=== PATIENT | female | born 1950 | race Two or more races ===

== ENCOUNTER 2025-08-26 12:59 | Inpatient (IN) | payer BC, MEDICAID ==
[~2025-08-26] VITALS: Ht 160 cm; Wt 75.1 kg
--- NOTE | 2025-08-26 14:24 | ED.PDOC ---
History of Present Illness HPI Comments 74-year-old female presents to the ER in a wheelchair being pushed by caregiver and with a prior medical history of seizures, CVA in the chief complaint of tremors. Caregiver reports on the patient having had on and off tremors for one week but worsened earlier today associated with diarrhea. Denies any other symptoms at this time. Denies chills, fever, N/V/D, SOB, CP. No other associated symptoms, modifiers, recent injuries or sick contacts present at this time. 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 Family History Family History: Reviewed,noncontributory to illness, Unknown Social History Smoker: Non-Smoker Alcohol: Denies ETOH Use Drugs: Denies Drug Use Lives In: Home Constitutional: denies: chills, diaphoresis, fatigue, fever, malaise, sweats, weakness, others EENTM: denies: blurred vision, double vision, ear bleeding, ear discharge, ear drainage, ear pain, ear ringing, eye pain, eye redness, hearing loss, mouth pain, mouth swelling, nasal discharge, nose bleeding, nose congestion, nose pain, photophobia, tearing, throat pain, throat swelling, voice changes, others Respiratory: denies: cough, hemoptysis, orthopnea, SOB at rest, shortness of breath, SOB with excertion, stridor, wheezing, others Cardiovascular: denies: chest pain, dizzy spells, diaphoresis, Dyspnea on exertion, edema, irregular heart beat, left arm pain, lightheadedness, palpitations, PND, syncope, others Gastrointestinal: reports: diarrhea; denies: abdomen distended, abdominal pain, blood streaked bowels, constipated, dysphagia, difficulty swallowing, hematemesis, melena, nausea, poor appetite, poor fluid intake, rectal bleeding, rectal pain, vomiting, others Genitourinary: denies: abnormal vagina bleeding, burning, dyspareunia, dysuria, flank pain, frequency, hematuria, incontinence, pain, , vagina discharge, urgency, others Neurological: reports: tremors; denies: dizziness, fainting, headache, left sided numbness, left sided weakness, numbness, paresthesia, pre-existing deficit, right sided numbness, right sided weakness, seizure, speech problems, tingling, weakness, others Musculoskeletal: denies: back pain, gout, joint pain, joint swelling, muscle pain, muscle stiffness, neck pain, others Integumetry: denies: bruises, change in color, change in hair/nails, dryness, laceration, lesions, lumps, rash, wounds, others Allergic/Immunocompromised: denies: Difficulty Healing, Frequent Infections, Hives, Itching, others Hematologic/Lymphatic: denies: anemia, blood clots, easy bleeding, easy bruising, swollen glands, others Endocrine: denies: excessive hunger, excessive sweating, excessive thirst, excessive urination, flushing, intolerance to cold, intolerance to heat, unexplained weight gain, unexplained weight loss, others Psychiatric: denies: anxiety, bipolar disorder, depression, hopeless, panic disorder, schizophrenia, sleepless, suicidal, others All Other Systems: Reviewed and Negative Physical Exam General Appearance: No Apparent Distress, Normal HEENT: Normal ENT Inspection, Pharynx Normal, TMs Normal Neck: Full Range of Motion, Non-Tender, Normal, Normal Inspection Respiratory: Chest Non-Tender, Lungs Clear, No Accessory Muscle Use, No Respiratory Distress, Normal Breath Sounds Cardiovascular: No Edema, No JVD, No Murmur, No Gallop, Normal Peripheral Pulses, Regular Rate/Rhythm Breast Exam: Deferred Gastrointestinal: No Organomegaly, Non Tender, No Pulsatile Mass, Normal Bowel Sounds, Soft Genitalia: Deferred Pelvic: Deferred Rectal: Deferred Extremities: No calf tenderness, Normal capillary refill, Normal inspection, No rmal range of motion, Non-tender, No pedal edema Musculoskeletal : Apperance: Normal Neurologic: Alert, blending tank tender II-XII nml as Tested, No Motor Deficits, Normal Affect, Normal Mood, No Sensory Deficits Cerebellar Function: Normal Reflexes: Normal Skin: Dry, Normal Color, Warm Lymphatic: No Adenopathy Was a procedure done? Was a procedure done?: No EKG EKG : Pulse Rate (adult): 99 [place]: Normal Cardiac Rhythm: NSR Block: None Hypertrophy: None ST: Normal Differential Dx Considerations may include: ACS, CVA, hypertensive emergency, viral syndrome, electrolyte abnormality X-Ray, Labs, Meds, VS Vital Signs Date Time Temp Pulse Resp B/P (MAP) Pulse Ox O2 Delivery O2 Flow Rate FiO2 08/26/25 17:00 98.7 88 18 149/115 (126) 98 98.7 08/26/25 17:00 88 18 98 Room Air* 0 21 08/26/25 16:59 149/115 08/26/25 16:40 97.8 86 16 171/122 (138) 95 97.8 08/26/25 15:46 184/122 08/26/25 15:26 98.2 79 16 184/122 (142) 94 98.2 08/26/25 14:25 99 08/26/25 13:09 99 08/26/25 13:00 98.1 102 18 172/111 95 98.1 Lab Test 08/26/25 17:44 08/26/25 15:30 08/26/25 14:23 Range/Units Troponin I High Sensitivity Pending 6 5 </=34 ng/L White Blood Count 6.7 4.4-10.8 10^3/uL Red Blood Count 5.15 4.0-5.20 10^6/uL Hemoglobin 15.2 12.2-16.2 g/dL Hematocrit 46.1 H 36.0-46.0 % Mean Corpuscular Volume 89.5 80.0-100.0 fL Mean Corpuscular Hemoglobin 29.6 28.0-32.0 pg Mean Corpuscular Hemoglobin Concent 33.1 32.0-36.0 g/dL Red Cell Distribution Width 14.5 H 11.8-14.3 % Platelet Count 174 140-450 10^3/uL Mean Platelet Volume 9.7 6.9-10.8 fL Neutrophils (%) (Auto) 69.5 37.0-80.0 % Lymphocytes (%) (Auto) 22.1 10.0-50.0 % Monocytes (%) (Auto) 6.7 0.0-12.0 % Eosinophils (%) (Auto) 1.1 0.0-7.0 % Basophils (%) (Auto) 0.6 0.0-2.0 % Neutrophils # (Auto) 4.7 1.6-8.6 10 ^3/uL Lymphocytes # (Auto) 1.5 0.4-5.4 10 ^3/uL Monocytes # (Auto) 0.5 0-1.3 10 ^3/uL Eosinophils # (Auto) 0.1 0-0.8 10 ^3/uL Basophils # (Auto) 0 0-0.2 10 ^3/uL Nucleated Red Blood Cells 0.1 % Sodium Level 147 H 136-145 mmol/L Potassium Level 4.0 3.5-5.1 mmol/L Chloride Level 108 H 98-107 mmol/L Carbon Dioxide Level 31 20-31 mmol/L Anion Gap 8 5-15 Blood Urea Nitrogen 16 9-23 mg/dL Creatinine 0.94 0.550-1.02 mg/dL Glomerular Filtration Rate Calc 63 >90 mL/min BUN/Creatinine Ratio 17.0 10.0-20.0 Serum Glucose 88 74-106 mg/dL Calcium Level 9.4 8.7-10.4 mg/dL Current Medications Medications (Trade) Dose Ordered Sig/Sera Route Start Time Stop Time Status Last Admin Clonidine HCl (Catapres Tablet) 0.1 mg ONCE ONCE PO 08/26/25 15:45 08/26/25 15:46 DC 08/26/25 15:46 Time of 1ST Reevaluation: 14:20 Reevaluation 1ST: Unchanged Patient Education/Counseling: Diagnosis, Treatment, Prognosis Family Education/Counseling: Diagnosis, Treatment, Prognosis SEPSIS Sepsis Screen Date sepsis recognized/suspect: Aug 26, 2025 Time Sepsis recognized/suspect: 1300 Recent Procedure: No On Antibiotic Therapy: No Respiratory Rate >20: No Heart Rate >90: Yes Temp<36 C (96.8 F) or >38.3 C: No SBP <90 or MAP <65 mmHG: No New Acute Mental Status Change: No Is the patient on CPAP, BIPAP,: No Physician Orders Electrocardigram (08/26/25 13:14) Urinalysis (08/26/25 13:52) Chest Portable (08/26/25 13:52) Head Without Contrast (08/26/25 13:52) Troponin-I Hs (08/26/25 16:52) Hydralazine Injection (Apresoline Inject (08/26/25 17:45) Vital Signs Date Time Temp Pulse Resp B/P (MAP) Pulse Ox O2 Delivery O2 Flow Rate FiO2 08/26/25 17:00 98.7 88 18 149/115 (126) 98 98.7 08/26/25 17:00 88 18 98 Room Air* 0 21 08/26/25 16:59 149/115 08/26/25 16:40 97.8 86 16 171/122 (138) 95 97.8 08/26/25 15:46 184/122 08/26/25 15:26 98.2 79 16 184/122 (142) 94 98.2 08/26/25 14:25 99 08/26/25 13:09 99 08/26/25 13:00 98.1 102 18 172/111 95 98.1 Laboratory Tests Test 08/26/25 14:23 White Blood Count 6.7 10^3/uL (4.4-10.8) Medications Medications Dose Ordered Sig/Sera Route Start Time Stop Time Status Last Admin Dose Admin Clonidine HCl 0.1 mg ONCE ONCE PO 08/26/25 15:45 08/26/25 15:46 DC 08/26/25 15:46 Departure 1 Departure Time of Disposition: 17:48 (Patient presented with hypertension and symptoms concerning for hypertensive emergency. Patient is receiving iv blood pressure medications requiring intensive monitoring. Data: 1. I ordered and reviewed the result of at least 3 labs including a CBC, BMP, and Urinalysis. 2. I independently interpreted the following tests: CT Brain: Which appears benign. EKG which is Normal Sinus RhythmRisk:This patient has a high risk of morbidity due to further diagnostic testing or treatment and may suffer from an acute cardiac disorder. Workup reveals hypertensive emergency and patient should be admitted for further workup. and possible expert consultation. ) Impression: Primary Impression: Hypertensive emergency Additional Impressions: Encephalopathy Tremors of nervous system Disposition: ADMITTED INPATIENT Admit to: Tele Condition: Guarded Critical Care Note Critical Care Time?: Yes Critical care comment: Hypertensive emergency Authorized and Performed by: Justina Cabrera MD Total critical care time: Approximately 38 minutes Due to a high probability of clinically significant, life threatening deterioration, the patient required my highest level of preparedness to intervene emergently and I personally spent this critical care time directly and personally managing the patient. This critical care time included obtaining a history; examining the patient; pulse oximetry; ordering and review of studies; arranging urgent treatment with development of a management plan; evaluation of patient's response to treatment; frequent reassessment; and, discussions with other providers. This critical care time was performed to assess and manage the high probability of imminent, life-threatening deterioration that could result in multi-organ failure. It was exclusive of separately billable procedures and treating other patients and teaching time. Please see my other sections and the rest of the note for further information on patient assessment and treatment. Stability Stability form required: No I personally scribed for JUSTINA CABRERA MD ([email or web address]) on 08/26/25 at 14:24. Electronically submitted by Leon Fritz ([employer]). I personally scribed for JUSTINA CABRERA MD ([email or web address]) on 08/26/25 at 14:25. Electronically submitted by Leon Fritz ([email or web address]). JUSTINA CABRERA MD Aug 26, 2025 14:24
--- NOTE | 2025-08-26 14:31 | DVH ---
CHEST RADIOGRAPH Indication: worsening seizures Technique: Single frontal view of the chest was obtained Comparison: None FINDINGS: Lines and Tubes: None Lungs: No focal consolidation. Pleura: No effusion. No pneumothorax. Cardiomediastinal contours: Unremarkable Bones: No acute osseous abnormality. IMPRESSION: No acute cardiopulmonary disease.
--- NOTE | 2025-08-26 14:37 | DVH ---
CT HEAD WITHOUT CONTRAST INDICATION: worsening seizures EXAM DATE: 08/26/2025 02:01 PM COMPARISON: None RADIATION DOSE: CTDIvol: 53 mGy, DLP: 966 mGy*cm PROCEDURE: CT scans of the head were obtained from the vertex to the skull base. Sagittal and coronal reconstructions were provided. All CT scans at this medical facility are performed using dose modulation techniques as appropriate to a performed exam including the following: Automated exposure control was utilized; adjustment of the MA and/or KV according to patient size; and use of iterative reconstruction technique. FINDINGS: There is sulcal and ventricular prominence. The brainshows normal morphology and bingham-white matter differentiation, without intracranial hemorrhage, extra-axial fluid collection, mass effect or acute large vessel infarct. The ventricles are normal in size. The basal cisterns are patent. The skull and visible facial bones are intact. The paranasal sinuses, mastoid air cells and middle ear cavities are well-aerated. The soft tissues of the scalp are unremarkable. IMPRESSION: No acute intracranial abnormality.
[2025-08-26 14:41] LABS: Hematocrit 46.1 % (36.0-46.0); Hemoglobin 15.2 g/dL (12.2-16.2); Mean Corpuscular Hemoglobin 29.6 pg (28.0-32.0); Mean Corpuscular Volume 89.5 fL (80.0-100.0); Nucleated Red Blood Cells % 0.1 %
[2025-08-26 14:50] LABS: Chloride 108 mmol/L (98-107); Potassium 4.0 mmol/L (3.5-5.1); Sodium 147 mmol/L (136-145)
[2025-08-26 14:51] LABS: Anion Gap 8 (5-15); Calcium 9.4 mg/dL (8.7-10.4); Carbon Dioxide 31 mmol/L (20-31)
[2025-08-26 14:56] LABS: BUN/Creatinine Ratio 17.0 (10.0-20.0); Blood Urea Nitrogen 16 mg/dL (9-23); Glucose 88 mg/dL (74-106)
[2025-08-26 17:00] VITALS: PULSE 88; RESP 18; O2SAT 98
[2025-08-26] MEDS: hydrALAZINE HCL 20 MG/ML VL IV ONE (18:59)
[2025-08-26] MEDS ORDERED: ONDANSETRON HCL 4 MG/2 ML VIAL IV PRN (19:45)
[2025-08-26] MEDS ORDERED: HYDROcodone-ACET 5/325MG TAB PO PRN (19:45)
[2025-08-26] MEDS ORDERED: LORazepam 2MG/ML-1ML VIAL IV PRN (19:45)
[2025-08-26] MEDS: DEXTROSE (50%) 50ML SYRG IV ONE (20:34)
[2025-08-26] MEDS: DEXTROSE 50% SYRINGE 50 ML IV ONE (20:34)
--- NOTE | 2025-08-26 22:32 | DVHHP2 ---
History of Present Illness Reason for Visit: Seizure History of Present Illness 74-year-old female presents for evaluation of seizure activity. Patient reports having a seizure today in the morning subsequently developed tremors. Caregiver who I spoke with on the phone reports patient having frequent seizures over the past week and soon after the seizures the tremors become more pronounced. Patient is currently alert and oriented. She does have a history of CVA. No headache or blurred vision. No cardiac or respiratory complaints. Past Medical History CVA, hypertension, seizures Past Surgical History None Family History Noncontributory Smoke: No ALCOHOL: none Drugs: None Lives: Roommate Review of Systems Review of Systems Review of systems are currently negative otherwise addressed in HPI. Allergies: Coded Allergies: NO KNOWN ALLERGIES (Unverified , 08/26/25) Medications Current Medications Medications Dose Ordered Sig/Sera Route Start Time Stop Time Status Last Admin Dose Admin Lorazepam 1 mg Q5MINP PRN IV 08/26/25 19:45 Hydralazine HCl 10 mg Q6HP PRN IV 08/26/25 19:45 Acetaminophen/ Hydrocodone Bitart 1 tab Q4HP PRN PO 08/26/25 19:45 Temazepam 15 mg QHSP PRN PO 08/26/25 19:45 Ondansetron HCl 4 mg Q4HP PRN IV 08/26/25 19:45 Enoxaparin Sodium 40 mg DAILY SC 08/27/25 10:00 Acetaminophen 650 mg Q6HP PRN PO 08/26/25 19:45 Exam Vital Signs Vital Signs Date Time Temp Pulse Resp B/P (MAP) Pulse Ox O2 Delivery O2 Flow Rate FiO2 08/26/25 20:00 97.6 93 22 129/78 (95) 94 97.6 08/26/25 17:00 Room Air* 0 21 Exam Gen: 74-year-old female in mild distress Skin: Warm, dry, normal color and texture, no rash. HEENT: Normocephalic atraumatic, mucous membranes moist and pink. Neck: Cervical and supraclavicular nodes normal without enlargement, trachea is midline, thyroid gland is normal without masses. Pulmonary: Clear to auscultation and percussion bilaterally. Cardiac: Regular rate and rhythm. No murmur Abdomen: Soft, nontender, nondistended, bowel sounds present all 4 quadrants, no guarding, no rigidity, no organomegaly. Extremities: No cyanosis, clubbing, no edema Neuro: Cranial nerves II through XII grossly intact, normal affect and speech, visible tremors upper extremity Labs/Xrays AGE / SEX: 74 / F ADM STATUS: REG ER SERVICE 1352 ORDERING PHYSICIAN: JUSTINA HAQUE MD PROCEDURE(s): CXRP - CHEST PORTABLE REASON: worsening seizures ORDER NUMBER(s): [id number], ACCESSION NUMBER(s): [id number] CHEST RADIOGRAPH Indication: worsening seizures Technique: Single frontal view of the chest was obtained Comparison: None FINDINGS: Lines and Tubes: None Lungs: No focal consolidation. Pleura: No effusion. No pneumothorax. Cardiomediastinal contours: Unremarkable Bones: No acute osseous abnormality. IMPRESSION: No acute cardiopulmonary disease. RING PHYSICIAN: JUSTINA HAQUE MD PROCEDURE(s): HWOCT - HEAD WITHOUT CONTRAST REASON: worsening seizures ORDER NUMBER(s): [id number], ACCESSION NUMBER(s): [id number] CT HEAD WITHOUT CONTRAST INDICATION: worsening seizures EXAM DATE: 08/26/2025 02:01 PM COMPARISON: None RADIATION DOSE: CTDIvol: 53 mGy, DLP: 966 mGy*cm PROCEDURE: CT scans of the head were obtained from the vertex to the skull base. Sagittal and coronal reconstructions were provided. All CT scans at this medical facility are performed using dose modulation techniques as appropriate to a performed exam including the following: Automated exposure control was utilized; adjustment of the MA and/or KV according to patient size; and use of iterative reconstruction technique. FINDINGS: There is sulcal and ventricular prominence. The brainshows normal morphology and bingham-white matter differentiation, without intracranial hemorrhage, extra-axial fluid collection, mass effect or acute large vessel infarct. The ventricles are normal in size. The basal cisterns are patent. The skull and visible facial bones are intact. The paranasal sinuses, mastoid air cells and middle ear cavities are well-aerated. The soft tissues of the scalp are unremarkable. IMPRESSION: No acute intracranial abnormality. Labs Test 08/26/25 21:07 08/26/25 17:44 08/26/25 14:23 Range/Units POC Glucose 185 H 70-106 mg/dl Troponin I High Sensitivity 6 </=34 ng/L White Blood Count 6.7 4.4-10.8 10^3/uL Red Blood Count 5.15 4.0-5.20 10^6/uL Hemoglobin 15.2 12.2-16.2 g/dL Hematocrit 46.1 H 36.0-46.0 % Mean Corpuscular Volume 89.5 80.0-100.0 fL Mean Corpuscular Hemoglobin 29.6 28.0-32.0 pg Mean Corpuscular Hemoglobin Concent 33.1 32.0-36.0 g/dL Red Cell Distribution Width 14.5 H 11.8-14.3 % Platelet Count 174 140-450 10^3/uL Mean Platelet Volume 9.7 6.9-10.8 fL Neutrophils (%) (Auto) 69.5 37.0-80.0 % Lymphocytes (%) (Auto) 22.1 10.0-50.0 % Monocytes (%) (Auto) 6.7 0.0-12.0 % Eosinophils (%) (Auto) 1.1 0.0-7.0 % Basophils (%) (Auto) 0.6 0.0-2.0 % Neutrophils # (Auto) 4.7 1.6-8.6 10 ^3/uL Lymphocytes # (Auto) 1.5 0.4-5.4 10 ^3/uL Monocytes # (Auto) 0.5 0-1.3 10 ^3/uL Eosinophils # (Auto) 0.1 0-0.8 10 ^3/uL Basophils # (Auto) 0 0-0.2 10 ^3/uL Nucleated Red Blood Cells 0.1 % Sodium Level 147 H 136-145 mmol/L Potassium Level 4.0 3.5-5.1 mmol/L Chloride Level 108 H 98-107 mmol/L Carbon Dioxide Level 31 20-31 mmol/L Anion Gap 8 5-15 Blood Urea Nitrogen 16 9-23 mg/dL Creatinine 0.94 0.550-1.02 mg/dL Glomerular Filtration Rate Calc 63 >90 mL/min BUN/Creatinine Ratio 17.0 10.0-20.0 Serum Glucose 88 74-106 mg/dL Calcium Level 9.4 8.7-10.4 mg/dL SEPSIS Sepsis Screen Date sepsis recognized/suspect: Aug 26, 2025 Time Sepsis recognized/suspect: 1699 Recent Procedure: No On Antibiotic Therapy: No Respiratory Rate >20: No Heart Rate >90: No Temp<36 C (96.8 F) or >38.3 C: No SBP <90 or MAP <65 mmHG: No New Acute Mental Status Change: No Is the patient on CPAP, BIPAP,: No Physician Orders Cardiac Diet-2gna,Lofat,Lochol (08/26/25 Dinner) Lorazepam 2mg/Ml Inj (Ativan Inj) (08/26/25 19:45) Seizure Precautions In Place (08/26/25 19:36) Hydralazine Injection (Apresoline Inject (08/26/25 19:45) Admit (08/26/25 19:36) Hydrocodone-Acet 5/325mg Tab ([place] 5/32 (08/26/25 19:45) Temazepam (Restoril) (08/26/25 19:45) Ondansetron Hcl (Zofran) (08/26/25 19:45) Enoxaparin Sodium (Lovenox) (08/27/25 10:00) Condition: Stable (08/26/25 19:36) Acetaminophen Tablet (Tylenol Tablet) (08/26/25 19:45) Bedrest With Bathroom Privileg (08/26/25 19:36) Vital Signs Date Time Temp Pulse Resp B/P (MAP) Pulse Ox O2 Delivery O2 Flow Rate FiO2 08/26/25 20:00 97.6 93 22 129/78 (95) 94 97.6 08/26/25 19:03 56 10 173/101 (125) 96 08/26/25 18:59 159/102 08/26/25 18:00 52 17 166/102 (123) 96 08/26/25 17:00 98.7 88 18 149/115 (126) 98 98.7 08/26/25 17:00 88 18 98 Room Air* 0 21 08/26/25 16:59 149/115 08/26/25 16:40 97.8 86 16 171/122 (138) 95 97.8 08/26/25 15:46 184/122 08/26/25 15:26 98.2 79 16 184/122 (142) 94 98.2 Laboratory Tests Test 08/26/25 14:23 White Blood Count 6.7 10^3/uL (4.4-10.8) Medications Medications Dose Ordered Sig/Sera Route Start Time Stop Time Status Last Admin Dose Admin Clonidine HCl 0.1 mg ONCE ONCE PO 08/26/25 15:45 08/26/25 15:46 DC 08/26/25 15:46 0.1 MG Dextrose 50 ml ONCE ONCE IV 08/26/25 20:30 08/26/25 20:31 DC 08/26/25 20:34 50 ML Hydralazine HCl 20 mg ONCE ONCE IV 08/26/25 17:45 08/26/25 17:49 DC 08/26/25 18:59 20 MG Assessment/Plan Assessment/Plan Assessment Breakthrough seizure Hypertensive crisis History of CVA Plan Admit the patient to [facility] to the hospitalist Seizure precautions in place Nephrology consultation Resume home medications Continue treatment per orders Plan discussed with: Patient My Orders Orders - MARGOT BRADSHAW Procedure Category Date Status Time Lorazepam 2mg/Ml Inj PHA 08/26/25 In Process (Ativan Inj) 19:45 Seizure Precautions MAU 08/26/[address] 19:36 Hydralazine Injection PHA 08/26/25 In Process (Apresoline Inject 19:45 Admit ADMIT 08/26/25 Transmitted 19:36 Hydrocodone-Acet PHA 08/26/25 In Process 5/325mg Tab ([place] 19:45 Temazepam (Restoril) PHA 08/26/25 In Process 19:45 Ondansetron Hcl PHA 08/26/25 In Process (Zofran) 19:45 Enoxaparin Sodium PHA 08/27/25 In Process (Lovenox) 10:00 Condition: Stable MAU 08/26/25 In Process 19:36 Acetaminophen Tablet PHA 08/26/25 In Process (Tylenol Tablet) 19:45 Bedrest With Bathroom MAU 08/26/25 In Process Privileg 19:36 Date of Service: Aug 26, 2025 Billing Provider: MARGOT BRADSHAW Common Visit Codes: [id number] INP/OBS CARE (HIGH) MARGOT BRADSHAW Aug 26, 2025 22:32
[2025-08-26] MEDS: levETIRAcetam 500 MG TAB PO ONE (22:50)
[2025-08-27] VITALS (8 sets, daily range): BP systolic 101–142; BP diastolic 66–86; PULSE 61–75; RESP 16–18; TEMP 97.9–98.5; O2SAT 93–97
[2025-08-27 00:04] LABS: Urine Protein, UAD Negative (Negative)
[2025-08-27] MEDS: ACETAMINOPHEN 325 MG TAB PO PRN (05:05)
[2025-08-27] MEDS: ENOXAPARIN SOD 40 MG/0.4 ML SYRINGE SC SCH (09:47)
[2025-08-27] MEDS: levETIRAcetam 500 MG TAB PO SCH (09:55)
[2025-08-27] MEDS: METOPROLOL SUCCINATE XL 50 MG TAB PO SCH (09:55)
--- NOTE | 2025-08-27 11:13 | ECG ---
[facility] Test Date: 2025-08-26 Test Time: 13:09:56 Pat Name: NINFA MCCRAY Department: ED Room: 0290 Gender: F Marine Mechanic: CESAR : 1950 Requested By: JUSTINA HAQUE Order Number: [id number] Reading MD: Dash Garcia Measurements Intervals [place] Rate: 99 P: 63 VT: 219 QRS: 47 QRSD: 61 T: 16 QT: 357 QTc: 459 Interpretive Statements Sinus rhythm Borderline prolonged VT interval Anterior infarct, old Electronically Signed On 08-28-2025 17:55:41 PST by Dash Garcia Please click the below link to view image of tracing.
[2025-08-27] MEDS: hydrALAZINE HCL 20 MG/ML VL IV PRN (11:53)
--- NOTE | 2025-08-27 13:01 | DVHPN2 ---
Subjective I am assuming the care of the patient from today onwards who was under the care of the hospitalist team. Detailed sign out obtained. Chart reviewed. Patient was seen and evaluated by me at bedside. 74-year-old female with a known history of hypertension, previous history of CVA, seizure disorder is here for breakthrough seizures. 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 Medications Current Medications Medications Dose Ordered Sig/Sera Route Start Time Stop Time Status Last Admin Dose Admin Lorazepam 1 mg Q5MINP PRN IV 08/26/25 19:45 Hydralazine HCl 10 mg Q6HP PRN IV 08/26/25 19:45 08/27/25 11:53 10 MG Acetaminophen/ Hydrocodone Bitart 1 tab Q4HP PRN PO 08/26/25 19:45 Temazepam 15 mg QHSP PRN PO 08/26/25 19:45 Ondansetron HCl 4 mg Q4HP PRN IV 08/26/25 19:45 Enoxaparin Sodium 40 mg DAILY SC 08/27/25 10:00 08/27/25 09:47 40 MG Acetaminophen 650 mg Q6HP PRN PO 08/26/25 19:45 08/27/25 05:05 650 MG Levetiracetam 500 mg BID PO 08/27/25 10:00 08/27/25 09:55 500 MG Clonidine HCl 0.2 mg DAILY PO 08/27/25 10:00 08/27/25 09:46 0.2 MG Amlodipine Besylate 5 mg DAILY PO 08/27/25 10:00 08/27/25 09:47 5 MG Metoprolol Succinate 50 mg DAILY PO 08/27/25 10:00 08/27/25 09:55 50 MG Laboratory Results Laboratory Tests 08/26/25 14:23 Chemistry Test 08/26/25 14:23 Calcium Level 9.4 mg/dL (8.7-10.4) Urinalysis Test 08/26/25 23:18 Urine Color Light-yellow (Yellow) Urine Clarity Clear (Clear) Urine pH 6.0 (5.0-9.0) Urine Specific [place] 1.015 (1.001-1.035) Urine Protein Negative (Negative) Urine Ketones Negative (Negative) Urine Blood Negative /uL (Negative) Urine Nitrite Negative (Negative) Urine Bilirubin Negative (Negative) Urine Urobilinogen Normal mg/dL (Negative) Urine Leukocyte Esterase Negative /uL (Negative) Urine RBC None seen /hpf (0 - 4) Urine Microscopic WBC < 1 /HPF (0-5) Urine Squamous Epithelial Cells Few /hpf (<5) Urine Bacteria None seen /hpf (None Seen) Urine Glucose 3+ mg/dL (Normal) H Assessment/Plan Assessment/Plan 74-year-old female with a known history of hypertension, previous history of CVA, seizure disorder is here for breakthrough seizure. 1. Breakthrough seizures 2. Hypertensive urgency 3. Previous history of CVA -continue current hypertensive meds, resume Keppra, we will get Neurology consultation. Plan discussed with: Patient My Orders Orders - LYNNE PENA MD Procedure Category Date Status Time Clonidine Hcl Tablet PHA 08/27/25 Verified (Catapres Tablet) 22:00 Date of Service: Aug 27, 2025 Billing Provider: LYNNE PENA MD Common Visit Codes: [id number] INP/OBS CARE(HIGH) LYNNE PENA MD Aug 27, 2025 13:01
[2025-08-27] MEDS: TEMAZEPAM 15 MG CAP PO PRN (23:00)
[2025-08-28] VITALS (7 sets, daily range): BP systolic 116–133; BP diastolic 71–82; PULSE 53–72; RESP 16–18; TEMP 96.5–98.2; O2SAT 91–97
--- NOTE | 2025-08-28 14:50 | DVHPN2 ---
Subjective . Patient was seen and evaluated by me at bedside. 74-year-old female with a known history of hypertension, previous history of CVA, seizure disorder is here for breakthrough seizures. 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 Medications Current Medications Medications Dose Ordered Sig/Sera Route Start Time Stop Time Status Last Admin Dose Admin Lorazepam 1 mg Q5MINP PRN IV 08/26/25 19:45 Hydralazine HCl 10 mg Q6HP PRN IV 08/26/25 19:45 08/27/25 11:53 10 MG Acetaminophen/ Hydrocodone Bitart 1 tab Q4HP PRN PO 08/26/25 19:45 Temazepam 15 mg QHSP PRN PO 08/26/25 19:45 08/27/25 23:00 15 MG Ondansetron HCl 4 mg Q4HP PRN IV 08/26/25 19:45 Enoxaparin Sodium 40 mg DAILY SC 08/27/25 10:00 08/28/25 09:33 40 MG Acetaminophen 650 mg Q6HP PRN PO 08/26/25 19:45 08/27/25 05:05 650 MG Levetiracetam 500 mg BID PO 08/27/25 10:00 08/28/25 09:33 500 MG Amlodipine Besylate 5 mg DAILY PO 08/27/25 10:00 08/28/25 09:33 5 MG Metoprolol Succinate 50 mg DAILY PO 08/27/25 10:00 08/28/25 09:33 50 MG Clonidine HCl 0.2 mg BID PO 08/27/25 22:00 08/28/25 09:33 0.2 MG Laboratory Results Laboratory Tests 08/26/25 14:23 Urinalysis Test 08/26/25 23:18 Urine Color Light-yellow (Yellow) Urine Clarity Clear (Clear) Urine pH 6.0 (5.0-9.0) Urine Specific [place] 1.015 (1.001-1.035) Urine Protein Negative (Negative) Urine Ketones Negative (Negative) Urine Blood Negative /uL (Negative) Urine Nitrite Negative (Negative) Urine Bilirubin Negative (Negative) Urine Urobilinogen Normal mg/dL (Negative) Urine Leukocyte Esterase Negative /uL (Negative) Urine RBC None seen /hpf (0 - 4) Urine Microscopic WBC < 1 /HPF (0-5) Urine Squamous Epithelial Cells Few /hpf (<5) Urine Bacteria None seen /hpf (None Seen) Urine Glucose 3+ mg/dL (Normal) H Assessment/Plan Assessment/Plan 74-year-old female with a known history of hypertension, previous history of CVA, seizure disorder is here for breakthrough seizure. 1. Breakthrough seizures 2. Hypertensive urgency , improved 3. Previous history of CVA -continue current hypertensive meds, resume Keppra, we will get Neurology consultation. Plan discussed with: Patient, Daughter, Son Date of Service: Aug 28, 2025 Billing Provider: LYNNE PENA MD Common Visit Codes: [id number] INP/OBS CARE(HIGH) LYNNE PENA MD Aug 28, 2025 14:50
[2025-08-29] VITALS (8 sets, daily range): BP systolic 105–139; BP diastolic 69–85; PULSE 52–66; RESP 16–18; TEMP 97.3–98.3; O2SAT 91–96
--- NOTE | 2025-08-29 15:51 | DVHDS2 ---
Discharge Summary Date of Admission Aug 26, 2025 at 19:36 Date of Discharge: Aug 29, 2025 Labs/Diagnostic Data: Laboratory Results Test 08/26/25 23:18 08/26/25 21:07 08/26/25 17:44 08/26/25 14:23 Urine Color Light-yellow (Yellow) Urine Clarity Clear (Clear) Urine pH 6.0 (5.0-9.0) Urine Specific [place] 1.015 (1.001-1.035) Urine Protein Negative (Negative) Urine Ketones Negative (Negative) Urine Blood Negative /uL (Negative) Urine Nitrite Negative (Negative) Urine Bilirubin Negative (Negative) Urine Urobilinogen Normal mg/dL (Negative) Urine Leukocyte Esterase Negative /uL (Negative) Urine RBC None seen /hpf (0 - 4) Urine Microscopic WBC < 1 /HPF (0-5) Urine Squamous Epithelial Cells Few /hpf (<5) Urine Bacteria None seen /hpf (None Seen) Urine Glucose 3+ mg/dL (Normal) POC Glucose 185 mg/dl (70-106) Troponin I High Sensitivity 6 ng/L (</=34) White Blood Count 6.7 10^3/uL (4.4-10.8) Red Blood Count 5.15 10^6/uL (4.0-5.20) Hemoglobin 15.2 g/dL (12.2-16.2) Hematocrit 46.1 % (36.0-46.0) Mean Corpuscular Volume 89.5 fL (80.0-100.0) Mean Corpuscular Hemoglobin 29.6 pg (28.0-32.0) Mean Corpuscular Hemoglobin Concent 33.1 g/dL (32.0-36.0) Red Cell Distribution Width 14.5 % (11.8-14.3) Platelet Count 174 10^3/uL (140-450) Mean Platelet Volume 9.7 fL (6.9-10.8) Neutrophils (%) (Auto) 69.5 % (37.0-80.0) Lymphocytes (%) (Auto) 22.1 % (10.0-50.0) Monocytes (%) (Auto) 6.7 % (0.0-12.0) Eosinophils (%) (Auto) 1.1 % (0.0-7.0) Basophils (%) (Auto) 0.6 % (0.0-2.0) Neutrophils # (Auto) 4.7 10 ^3/uL (1.6-8.6) Lymphocytes # (Auto) 1.5 10 ^3/uL (0.4-5.4) Monocytes # (Auto) 0.5 10 ^3/uL (0-1.3) Eosinophils # (Auto) 0.1 10 ^3/uL (0-0.8) Basophils # (Auto) 0 10 ^3/uL (0-0.2) Nucleated Red Blood Cells 0.1 % Sodium Level 147 mmol/L (136-145) Potassium Level 4.0 mmol/L (3.5-5.1) Chloride Level 108 mmol/L (98-107) Carbon Dioxide Level 31 mmol/L (20-31) Anion Gap 8 (5-15) Blood Urea Nitrogen 16 mg/dL (9-23) Creatinine 0.94 mg/dL (0.550-1.02) Glomerular Filtration Rate Calc 63 mL/min (>90) BUN/Creatinine Ratio 17.0 (10.0-20.0) Serum Glucose 88 mg/dL (74-106) Calcium Level 9.4 mg/dL (8.7-10.4) Other Laboratory Tests 08/26/25 14:23 Brief Hx & Hospital Course: 74-year-old female with a known history of hypertension, previous history of CVA, seizure disorder is here for breakthrough seizure. Patient was eventually admitted. Neurology was consulted. Patient was resumed on seizure medications. Patient denies any seizure episode while during the hospital stay. Patient has hypertensive urgency has been resolved. Patient has been discharged under stable condition. Condition at Discharge: Stable Final Diagnosis/Problems List Assessment/Plan 74-year-old female with a known history of hypertension, previous history of CVA, seizure disorder is here for breakthrough seizure. 1. Breakthrough seizures 2. Hypertensive urgency , improved 3. Previous history of CVA Discharge Disposition: Home SNF Discharge Will this Physician continue t: No Discharge Instruct/Medications Diet: Cardiac 2g Na,low cholest Activity: See Comment Activity comment: No driving while on seizure medications. Follow Up/Referral: Please follow up with the PCP and Neurology upon discharge in 1-2 weeks. Medications: Resume home medications. Medication Profile: Unable to Obtain Active Prescriptions or Reported Meds Unable to Obtain Active Prescriptions or Reported Meds Discharge Statement: "Patient was advised to return to the ER or call 911 if any headaches, dizziness, shortness of breath, chest pain, abdominal pain, bleeding, fevers, or worsening of medical condition. Patient was counseled about treatment plan, medications, possible side effects, patientverbalized understanding. All questions were answered to the best of my ability. This discharge took greater then 30 minutes in planning, reviewing documentation, counseling the patient, and discussing with other team members." ASSESSMENT ASSESSMENT Assessment Assessment/Plan 74-year-old female with a known history of hypertension, previous history of CVA, seizure disorder is here for breakthrough seizure. 1. Breakthrough seizures 2. Hypertensive urgency , improved 3. Previous history of CVA Date of Service: Aug 29, 2025 Billing Provider: LYNNE PENA MD Common Visit Codes: [id number] DISCH DAY >30min LYNNE PENA MD Aug 29, 2025 15:51
--- NOTE | 2025-08-29 23:50 | DVHINCON2 ---
Date of service: Aug 29, [address] Wood Reason for Consultation Seizure History of Present Illness Ms. Wood is a 74 years old right-handed female with a history of hypertension, stroke, seizure, depression, she was brought to the [facility] on 08/26/2025 with a chief complaint of tremor. At this time, he is alert and fully oriented, he provided the following history She relates she came to the hospital because of worsening of her seizures. When she woke up, she had typical seizures in that he was shaking all over body violently for a few minutes and she remembers seizure clearly She relates that she has been going on for a few years, the seizure typically wake her up from sleep, and she has shaking all over the body with out loss of consciousness, the seizure typically lasts for a few minutes or longer, use happens once every 4-5 months, now every 2-3 months and she thinks the seizure is getting worse because become more frequent. She does not not remember seeing a family doctor, specialist, but she has a visiting nurse come on regular basis, she is on some medication at home part she does not remember the names of the medications She had two strokes, one was 4-5 years ago, and then was 2-3 years ago, both caused right-sided weakness, she has been using a walker since her strokes. She does not remember what she takes for her stroke CBC, 08/26/2025, unremarkable BMP, 08/26/2025: Normal CT head, 08/26/2025: No acute intracranial abnormality. Past Medical History Hypertension, Seizure, stroke x 2, depression Past Surgical History None Family History Diabetes Social History She was tobacco smoker, but no history of drug/alcohol abuse Allergies: Coded Allergies: NO KNOWN ALLERGIES (Unverified , 08/26/25) Home Meds Unable to Obtain Active Prescriptions or Reported Meds Review of Systems As above, the other systems are negative Vital Signs Vital Signs Date Time Temp Pulse Resp B/P (MAP) Pulse Ox O2 Delivery O2 Flow Rate FiO2 08/29/25 21:10 107/74 08/29/25 21:00 97.7 66 17 94 97.7 08/29/25 20:00 Room Air* 0 21 Physical Exam GENERAL EXAM: General: the patient is well developed and nourished. No acute distress. HEENT: Normocephalic, neck is supple, no carotid bruits. No mass. RESPIRATORY: Normal respiratory effort with symmetrical lung expansion. Lungs clear to auscultation. CARDIOVASCULAR: Regular rate and rhythm with no murmurs. S1, S2. ABDOMEN: Soft, nontender, normal bowel sound NEUROLOGICAL: MENTAL STATUS: Awake and alert. Oriented to person, place, time and general circumstances. Able to give personal history. SPEECH, LANGUAGE, HIGHER CORTICAL FUNCTION: no aphasia or dysathria. CRANIAL NERVES: #2: Intact visual saunders to confrontation. The optic discs were sharp. #3,4,6: Pupils are equal, round and reactive. EOMs full and conjugate. No nystagmus. #5: Facial sensation intact in all three divisions bilaterally. Mandibular strength intact. #7: Facial muscles symmetrical and strength intact. #8: Hearing grossly normal to voice. #9,10: Uvula and soft palate rise in the midline. Swallow and voice are normal. #11: Trapezius and sternomastoid strength intact bilaterally. #12: Tongue midline. No fasciculations or atrophy. SENSATION: Sensation to touch and pinprick is normal. MOTOR: Normal tone in the upper and lower extremity. Normal muscle bulk. No fasciculations. No abnormal movements or posturing. Muscle strength of the major groups in the upper extremities is 5/5. Muscle strength of the major groups in the lower extremities is 5/5. REFLEXES: Deep tendon reflexes are symmetrical. No pathological reflexes. CEREBELLAR/COORDINATION: Finger to nose is normal bilaterally. GAIT/STATION: deferred. Labs/Diagnostic Data Labs Test 08/26/25 23:18 08/26/25 21:07 08/26/25 17:44 08/26/25 14:23 Range/Units Urine Color Light-yellow Yellow Urine Clarity Clear Clear Urine pH 6.0 5.0-9.0 Urine Specific [place] 1.015 1.001-1.035 Urine Protein Negative Negative Urine Ketones Negative Negative Urine Blood Negative Negative /uL Urine Nitrite Negative Negative Urine Bilirubin Negative Negative Urine Urobilinogen Normal Negative mg/dL Urine Leukocyte Esterase Negative Negative /uL Urine RBC None seen 0 - 4 /hpf Urine Microscopic WBC < 1 0-5 /HPF Urine Squamous Epithelial Cells Few <5 /hpf Urine Bacteria None seen None Seen /hpf Urine Glucose 3+ H Normal mg/dL POC Glucose 185 H 70-106 mg/dl Troponin I High Sensitivity 6 </=34 ng/L White Blood Count 6.7 4.4-10.8 10^3/uL Red Blood Count 5.15 4.0-5.20 10^6/uL Hemoglobin 15.2 12.2-16.2 g/dL Hematocrit 46.1 H 36.0-46.0 % Mean Corpuscular Volume 89.5 80.0-100.0 fL Mean Corpuscular Hemoglobin 29.6 28.0-32.0 pg Mean Corpuscular Hemoglobin Concent 33.1 32.0-36.0 g/dL Red Cell Distribution Width 14.5 H 11.8-14.3 % Platelet Count 174 140-450 10^3/uL Mean Platelet Volume 9.7 6.9-10.8 fL Neutrophils (%) (Auto) 69.5 37.0-80.0 % Lymphocytes (%) (Auto) 22.1 10.0-50.0 % Monocytes (%) (Auto) 6.7 0.0-12.0 % Eosinophils (%) (Auto) 1.1 0.0-7.0 % Basophils (%) (Auto) 0.6 0.0-2.0 % Neutrophils # (Auto) 4.7 1.6-8.6 10 ^3/uL Lymphocytes # (Auto) 1.5 0.4-5.4 10 ^3/uL Monocytes # (Auto) 0.5 0-1.3 10 ^3/uL Eosinophils # (Auto) 0.1 0-0.8 10 ^3/uL Basophils # (Auto) 0 0-0.2 10 ^3/uL Nucleated Red Blood Cells 0.1 % Sodium Level 147 H 136-145 mmol/L Potassium Level 4.0 3.5-5.1 mmol/L Chloride Level 108 H 98-107 mmol/L Carbon Dioxide Level 31 20-31 mmol/L Anion Gap 8 5-15 Blood Urea Nitrogen 16 9-23 mg/dL Creatinine 0.94 0.550-1.02 mg/dL Glomerular Filtration Rate Calc 63 >90 mL/min BUN/Creatinine Ratio 17.0 10.0-20.0 Serum Glucose 88 74-106 mg/dL Calcium Level 9.4 8.7-10.4 mg/dL Assessment Seizure disorder, based on her description, the seizure she presented is nonepileptic seizure She reports strokes x2, but physical examination shows no lateralized weakness Plan/Recommendation Monitoring Supportive treatment Telemetry Okay to discharge her with continuing her home medication from neurologic point of view Her seizure needs to be further addressed as outpatient Her secondary stroke prevention need to be further addressed as outpatient More recommendation per clinical course Prognosis: Poor This medical document was created using an electronic medical record system with [email or web address] dictation system. Although this document has been carefully reviewed, there may still be some phonetic and typographical errors. These areas are purely typographical due to imperfections of the software programs, and do not reflect any compromise in the patient's medical care. Plan discussed with: Patient, Other SRINIVAS ROSS MD Aug 29, 2025 23:50
[2025-08-30] VITALS (7 sets, daily range): BP systolic 120–138; BP diastolic 63–86; PULSE 51–66; RESP 16–18; TEMP 97.7–98.5; O2SAT 95–99
--- NOTE | 2025-08-30 15:46 | DVHPN2 ---
Subjective . Patient was seen and evaluated by me at bedside. 74-year-old female with a known history of hypertension, previous history of CVA, seizure disorder is here for breakthrough seizures. 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 Medications Current Medications Medications Dose Ordered Sig/Sera Route Start Time Stop Time Status Last Admin Dose Admin Lorazepam 1 mg Q5MINP PRN IV 08/26/25 19:45 Hydralazine HCl 10 mg Q6HP PRN IV 08/26/25 19:45 08/27/25 11:53 10 MG Acetaminophen/ Hydrocodone Bitart 1 tab Q4HP PRN PO 08/26/25 19:45 Temazepam 15 mg QHSP PRN PO 08/26/25 19:45 08/30/25 00:35 15 MG Ondansetron HCl 4 mg Q4HP PRN IV 08/26/25 19:45 Enoxaparin Sodium 40 mg DAILY SC 08/27/25 10:00 08/30/25 10:42 40 MG Acetaminophen 650 mg Q6HP PRN PO 08/26/25 19:45 08/27/25 05:05 650 MG Levetiracetam 500 mg BID PO 08/27/25 10:00 08/30/25 10:40 500 MG Amlodipine Besylate 5 mg DAILY PO 08/27/25 10:00 08/30/25 10:42 5 MG Metoprolol Succinate 50 mg DAILY PO 08/27/25 10:00 08/30/25 10:41 50 MG Clonidine HCl 0.2 mg BID PO 08/27/25 22:00 08/30/25 10:41 0.2 MG Laboratory Results Laboratory Tests 08/26/25 14:23 Urinalysis Test 08/26/25 23:18 Urine Color Light-yellow (Yellow) Urine Clarity Clear (Clear) Urine pH 6.0 (5.0-9.0) Urine Specific [place] 1.015 (1.001-1.035) Urine Protein Negative (Negative) Urine Ketones Negative (Negative) Urine Blood Negative /uL (Negative) Urine Nitrite Negative (Negative) Urine Bilirubin Negative (Negative) Urine Urobilinogen Normal mg/dL (Negative) Urine Leukocyte Esterase Negative /uL (Negative) Urine RBC None seen /hpf (0 - 4) Urine Microscopic WBC < 1 /HPF (0-5) Urine Squamous Epithelial Cells Few /hpf (<5) Urine Bacteria None seen /hpf (None Seen) Urine Glucose 3+ mg/dL (Normal) H Assessment/Plan Assessment/Plan 74-year-old female with a known history of hypertension, previous history of CVA, seizure disorder is here for breakthrough seizure. 1. Breakthrough seizures 2. Hypertensive urgency , improved 3. Previous history of CVA -continue current hypertensive meds, resume LOBO Pedroza home today as Neurology cleared. Plan discussed with: Patient My Orders Orders - LYNNE PENA MD Procedure Category Date Status Time * Assistant Corporate Secretary CONS 08/30/25 Transmitted Consult Discharge DISCHARGE 08/30/25 Transmitted 13:07 Date of Service: Aug 30, 2025 Billing Provider: LYNNE PENA MD Common Visit Codes: [id number] INP/OBS CARE(MOD) LYNNE PENA MD Aug 30, 2025 15:46
== END 2025-08-30 15:30 | disposition home or self-care (01) | DRG 101 ==
LOC: ER 12:59 → OVERFLOW 19:36 → WEST WING 08-27 20:40
PROVIDERS: ADMIT Internal Medicine; ATTEND Internal Medicine
DX: G40.909 Epilepsy, unspecified, not intractable, without status epilepticus (principal); I16.0 Hypertensive urgency; F32.A Depression, unspecified; F17.200 Nicotine dependence, unspecified, uncomplicated; Z86.73 Personal history of transient ischemic attack (TIA), and cerebral infarction without residual deficits; Z83.3 Family history of diabetes mellitus; Z79.899 Other long term (current) drug therapy; I10 Essential (primary) hypertension
CPT/HCPCS: 36415; 70450; 71045; 80048; 81001; 82962; 84484; 85025; 93005; 96374; 96375; 99291; G0378